=== PATIENT | male | born 1950 | race Hispanic/Latino ===

== ENCOUNTER → 2017-05-09 | Outpatient (CLI) | payer OTHER, MEDICARE ==
[~2017-05-09] MED LIST: CYAN25006 SL; ESOM40CA54 PO; FOLI0.8T2 PO; FOLI1TAB15 PO; FURO-151 PO; FURO40TA5 PO; LACT10SO9 PO; PANT40TA PO; PANT40TA25 PO; RIFA550T PO; SPIR100T3 PO; SPIR50TA3 PO
[2017-05-09 15:45] LABS: ALBUMIN,BODY FLUID < 0.6 g/dL
[2017-05-09 15:51] LABS: SPECIMENTYPE,BODY FLUID THORACENTESIS
[2017-05-09 15:52] LABS: APPEARANCE BODY FLUID TURBID (CLEAR); COLOR,BODY FLUID LT YELLOW (LT YELLOW); TOTAL VOLUME,BODY FLUID 2000 mL
[2017-05-09 15:53] LABS: BODY FLUID RBC 2395 /cu. mm.; BODY FLUID WBC 74 /cu. mm.
[2017-05-09 16:03] LABS: BF LYMPHOCYTE 29 %; BF MESOTHELIAL 39 %
== END | disposition home or self-care (01) ==
LOC: RAH 09:51
PROVIDERS: ATTEND Internal Medicine Gastroenterology
DX: J90 Pleural effusion, not elsewhere classified (principal)
CPT/HCPCS: 32555; 71010; 82042; 84157; 87071; 87205; 88108; 88305; 89051

== ENCOUNTER 2017-05-15 09:46 | Observation (INO) | payer MEDICARE ==
[~2017-05-15] VITALS: Ht 160 cm; Wt 57.2 kg
[~2017-05-15 09:46] MED LIST changes: -CYAN25006 SL; -ESOM40CA54 PO; -FOLI0.8T2 PO; -FOLI1TAB15 PO; -FURO40TA5 PO; -PANT40TA25 PO; -RIFA550T PO; -SPIR100T3 PO; -SPIR50TA3 PO
[2017-05-15 10:07] LABS: BASOPHILS % (AUTO) 0.7 % (0.0-5.0); HEMATOCRIT 23.3 % (42-54); LYMPHOCYTES % (AUTO) 16.8 % (21.0-51.0); MEAN CORPUSCULAR HGB CONC 36.5 g/dL (32.0-36.0); MEAN CORPUSCULAR VOLUME 104.2 fL (79-99); NEUTROPHILS % (AUTO) 71.5 % (40.0-77.0); NUCLEATED RED BLOOD CELLS 0.1 % (0.0-0.19); PLATELET COUNT (AUTO) 63 K/uL (130-400); RED BLOOD CELL COUNT(AUTO) 2.24 MIL/uL (4.50-6.20); RED CELL DISTRIBUTION WIDTH 15.2 % (11.0-15.5); WHITE BLOOD COUNT (AUTO) 4.6 K/uL (4.8-10.8)
[2017-05-15 10:18] LABS: CREATININE 1.1 mg/dL (0.5-1.5); POTASSIUM 4.4 mmol/L (3.5-5.1)
[2017-05-15 10:28] LABS: ALBUMIN 1.8 g/dL (3.5-5.0); BILIRUBIN,DIRECT 3.2 mg/dL (0.0-0.3); BILIRUBIN,TOTAL 6.8 mg/dL (0.2-1.0); TOTAL PROTEIN, SERUM 6.3 g/dL (6.0-8.3)
[2017-05-15] MEDS ORDERED: LACTULOSE 20 GM/30 ML UDCUP ONE (10:43)
[2017-05-15 16:41] VITALS: BP 96/55
[2017-05-15] MEDS ORDERED: POTASSIUM CHLORIDE 10% ELIXIR 20 MEQ/15 ML UDCUP PO PRN (17:15)
[2017-05-15] MEDS ORDERED: POTASSIUM CHLORIDE 20MEQ/100ML 100 ML IV PRN (17:15)
[2017-05-15] MEDS ORDERED: POTASSIUM CHLORIDE 20 MEQ ERTAB PO PRN (17:15)
[2017-05-15] MEDS ORDERED: LACTULOSE 20 GM/30 ML UDCUP PO PRN ×2 (17:15→20:00)
[2017-05-15] MEDS ORDERED: GUAIFENESIN SUGAR-FREE 100 MG/5 ML UDCUP PO PRN (17:15)
[2017-05-15] MEDS ORDERED: CLONIDINE HCL 0.1 MG TABLET PO PRN (17:15)
[2017-05-15] MEDS ORDERED: DiphenhydrAMINE HCL 50 MG/ML VIAL IVP PRN (17:15)
[2017-05-15] MEDS ORDERED: ZOLPIDEM TARTRATE 5 MG TAB PO PRN (17:15)
[2017-05-15] MEDS ORDERED: ONDANSETRON HCL 4 MG/2 ML VIAL IVP PRN (17:15)
[2017-05-15] MEDS ORDERED: MAG HYDROX/AL HYDROX/SIMETH ES 30 ML SUSP UDCUP PO PRN (17:15)
[2017-05-15] MEDS ORDERED: LIDOCAINE HCL-MPF 1% 2ML VIAL IJ PRN (17:15)
[2017-05-15] MEDS ORDERED: GUAIFENESIN-DM 200/20 MG 10 ML PO PRN (17:15)
[2017-05-15] MEDS ORDERED: DIPHENHYDRAMINE HCL 25 MG CAPSULE PO PRN (17:15)
[2017-05-15] MEDS ORDERED: SODIUM CHLORIDE 0.9% 10 ML VIAL IVP SCH (17:15)
[2017-05-15] MEDS ORDERED: NITROGLYCERIN 0.4 MG SL TAB SL PRN (17:15)
[2017-05-15] MEDS ORDERED: ACETAMINOPHEN 325 MG TAB PO PRN ×2 (17:15)
[2017-05-15 19:55] VITALS: BP 116/62
[2017-05-15] MEDS ORDERED: LORAZEPAM 2 MG/ML 1 ML VIAL IVP PRN (20:00)
[2017-05-15 23:00] VITALS: BP 108/62
[2017-05-16 03:00] VITALS: BP 111/64
[2017-05-16 05:10] LABS: HEMATOCRIT 23.3 % (42-54); MEAN CORPUSCULAR HEMOGLOBIN 36.5 pg (27.0-33.0); MEAN CORPUSCULAR VOLUME 104.1 fL (79-99); PLATELET COUNT (AUTO) 62 K/uL (130-400); RED BLOOD CELL COUNT(AUTO) 2.24 MIL/uL (4.50-6.20); RED CELL DISTRIBUTION WIDTH 15.5 % (11.0-15.5); WHITE BLOOD COUNT (AUTO) 5.9 K/uL (4.8-10.8)
[2017-05-16 05:23] LABS: ALBUMIN 1.7 g/dL (3.5-5.0); BILIRUBIN,TOTAL 6.6 mg/dL (0.2-1.0); CREATININE 1.1 mg/dL (0.5-1.5); POTASSIUM 4.2 mmol/L (3.5-5.1); TOTAL PROTEIN, SERUM 5.9 g/dL (6.0-8.3)
[2017-05-16 08:03] VITALS: BP 110/65
[2017-05-16] MEDS ORDERED: LACTULOSE 20 GM/30 ML UDCUP PO SCH (09:00)
[2017-05-16] MEDS ORDERED: LACT10SO9 PO ×2 (11:19)
[2017-05-16] MEDS ORDERED: FURO40TA5 PO ×2 (11:19)
[2017-05-16] MEDS ORDERED: PANT40TA25 PO ×2 (11:19)
[2017-05-16] MEDS ORDERED: SPIR100T3 PO ×2 (11:19)
[2017-05-16 11:31] VITALS: BP 102/58
[2017-08-14] MEDS ORDERED: SPIR50TA3 PO (03:05)
== END 2017-05-16 12:22 | disposition home or self-care (01) ==
LOC: EDH 09:46 → EDHIP 12:00 → INTOOBSV 12:00 → 4CH 16:37
PROVIDERS: ADMIT Family Medicine; ATTEND Family Medicine
DX: K72.90 Hepatic failure, unspecified without coma (principal); K74.60 Unspecified cirrhosis of liver; C22.9 Malignant neoplasm of liver, not specified as primary or secondary; Z85.05 Personal history of malignant neoplasm of liver
CPT/HCPCS: 36415 ×2; 71045; 80048; 80053; 80076; 82140 ×2; 83690; 84484; 85025; 85027; 93005; 99285; G0378 ×24

== ENCOUNTER 2017-05-22 23:31 | Inpatient (IN) | payer MEDICARE ==
[~2017-05-22] VITALS: Ht 165.1 cm; Wt 59.7 kg
[~2017-05-22 23:31] MED LIST changes: +FURO40TA5 PO; +PANT40TA25 PO; +SPIR100T3 PO
[2017-05-23 00:01] LABS: BASOPHILS % (AUTO) 0.6 % (0.0-5.0); EOSINOPHILS % (AUTO) 1.1 % (0.0-8.0); HEMATOCRIT 30.9 % (42-54); LYMPHOCYTES % (AUTO) 15.2 % (21.0-51.0); MEAN CORPUSCULAR HEMOGLOBIN 36.9 pg (27.0-33.0); MEAN CORPUSCULAR HGB CONC 35.6 g/dL (32.0-36.0); MEAN CORPUSCULAR VOLUME 103.6 fL (79-99); MONOCYTES % (AUTO) 10.6 % (3.0-13.0); NEUTROPHILS % (AUTO) 72.5 % (40.0-77.0); PLATELET COUNT (AUTO) 82 K/uL (130-400); RED BLOOD CELL COUNT(AUTO) 2.98 MIL/uL (4.50-6.20); RED CELL DISTRIBUTION WIDTH 16.7 % (11.0-15.5)
[2017-05-23 00:14] LABS: CREATININE 1.5 mg/dL (0.5-1.5); POTASSIUM 4.8 mmol/L (3.5-5.1)
[2017-05-23 00:15] LABS: INR 1.49 (0.85-1.15); PARTIAL THROMBOPLASTIN TIME 33.9 SEC (26.3-35.5); PROTHROMBIN TIME 15.5 SEC (9.6-11.6)
[2017-05-23 00:19] LABS: BILIRUBIN,TOTAL 7.6 mg/dL (0.2-1.0); TOTAL PROTEIN, SERUM 6.6 g/dL (6.0-8.3)
[2017-05-23 00:40] LABS: CREATINE KINASE, TOTAL 30 U/L (21-232)
[2017-05-23] MEDS ORDERED: ONDANSETRON HCL 4 MG/2 ML VIAL ONE (00:47)
[2017-05-23 02:31] LABS: CREATINE KINASE MB < 0.5 ng/mL (0.5-3.6)
[2017-05-23] MEDS ORDERED: LACTULOSE 20 GM/30 ML UDCUP ONE ×2 (03:05→10:19)
[2017-05-23] MEDS ORDERED: PHYTONADIONE 10 MG/1 ML AMP ONE (03:05)
[2017-05-23 06:35] LABS: MEAN CORPUSCULAR HEMOGLOBIN 38.7 pg (27.0-33.0); MEAN CORPUSCULAR HGB CONC 37.2 g/dL (32.0-36.0); MEAN CORPUSCULAR VOLUME 104.3 fL (79-99); PLATELET COUNT (AUTO) 92 K/uL (130-400); RED BLOOD CELL COUNT(AUTO) 1.94 MIL/uL (4.50-6.20); RED CELL DISTRIBUTION WIDTH 16.4 % (11.0-15.5); WHITE BLOOD COUNT (AUTO) 6.9 K/uL (4.8-10.8)
[2017-05-23 06:45] LABS: HEMATOCRIT 20.3 % (42-54)
[2017-05-23 06:49] LABS: CREATININE 1.5 mg/dL (0.5-1.5); POTASSIUM 4.5 mmol/L (3.5-5.1)
[2017-05-23 06:52] LABS: ALBUMIN 1.7 g/dL (3.5-5.0); BILIRUBIN,TOTAL 7.4 mg/dL (0.2-1.0); TOTAL PROTEIN, SERUM 5.8 g/dL (6.0-8.3)
[2017-05-23 07:21] LABS: LYMPHOCYTES % (MANUAL) 9 % (22-44); MAN.DIFF COMMENT-IMPRESSION MANUAL DIFFERENTIAL; MONOCYTES % (MANUAL) 7 % (2-9); SEGMENTED NEUTROPHILS % 84 % (40-70)
[2017-05-23 07:22] LABS: PLATELET MORPHOLOGY COMMENT DECREASED
[2017-05-23] MEDS ORDERED: ALBUMIN (HUMAN) 25% 200 ML IV ONE (16:15)
[2017-05-23 21:11] VITALS: BP 95/46
[2017-05-23] MEDS ORDERED: SODIUM CHLORIDE 0.9% 10 ML VIAL IVP PRN (22:00)
[2017-05-23 23:56] VITALS: BP 93/51
[2017-05-24 03:52] LABS: MEAN CORPUSCULAR HEMOGLOBIN 36.9 pg (27.0-33.0); MEAN CORPUSCULAR HGB CONC 35.5 g/dL (32.0-36.0); NUCLEATED RED BLOOD CELLS 0.2 % (0.0-0.19); PLATELET COUNT (AUTO) 57 K/uL (130-400); RED BLOOD CELL COUNT(AUTO) 1.55 MIL/uL (4.50-6.20); RED CELL DISTRIBUTION WIDTH 15.9 % (11.0-15.5); WHITE BLOOD COUNT (AUTO) 4.2 K/uL (4.8-10.8)
[2017-05-24 03:59] LABS: HEMATOCRIT 16.2 % (42-54)
[2017-05-24 04:00] VITALS: BP 99/50
[2017-05-24 04:39] LABS: ALBUMIN 2.3 g/dL (3.5-5.0); BILIRUBIN,TOTAL 6.1 mg/dL (0.2-1.0); CREATININE 1.4 mg/dL (0.5-1.5); POTASSIUM 4.6 mmol/L (3.5-5.1); TOTAL PROTEIN, SERUM 5.2 g/dL (6.0-8.3)
[2017-05-24] MEDS ORDERED: SODIUM CHLORIDE 0.9% 250 ML IV ONE (04:46)
[2017-05-24] MEDS: LACTULOSE 20 GM/30 ML UDCUP PO SCH ×4 (05:09→17:21)
[2017-05-24 08:32] VITALS: BP 95/50
[2017-05-24] MEDS ORDERED: PANTOPRAZOLE SODIUM 40 MG TABLET.DR PO SCH (09:00)
[2017-05-24 11:37] VITALS: BP 96/51
[2017-05-24 15:48] VITALS: BP 99/59
[2017-08-14] MEDS ORDERED: SPIR50TA3 PO (03:05)
== END 2017-05-24 19:20 | disposition home or self-care (01) | DRG 432 ==
LOC: EDH 23:31 → EDHIP 05-23 02:25 → OBSVTOIN 05-23 02:25 → 3BH 05-23 20:59
PROVIDERS: ADMIT Internal Medicine; ATTEND Internal Medicine
PROC: 0W9G3ZZ Drainage of Peritoneal Cavity, Percutaneous Approach (ICD-10-PCS; principal; 2017-05-23)
PROC: 30233N1 Transfusion of Nonautologous Red Blood Cells into Peripheral Vein, Percutaneous Approach (ICD-10-PCS; 2017-05-24)
DX: K74.60 Unspecified cirrhosis of liver (principal); E43 Unspecified severe protein-calorie malnutrition; D68.9 Coagulation defect, unspecified; K72.90 Hepatic failure, unspecified without coma; D62 Acute posthemorrhagic anemia; K92.2 Gastrointestinal hemorrhage, unspecified; R18.8 Other ascites; E87.1 Hypo-osmolality and hyponatremia
CPT/HCPCS: 36415; 36430; 49083; 80053; 82140; 82550; 82553; 84484; 85025; 85027; 85610; 85730; 86850; 86900; 86901; 86922; 93005; J2405; J3430; J7030; P9016; P9046

== ENCOUNTER 2017-05-27 22:30 | Inpatient (IN) | payer MEDICARE ==
[~2017-05-27] VITALS: Ht 165.1 cm; Wt 62.6 kg
[~2017-05-27 22:30] MED LIST changes: -FURO-151 PO; -PANT40TA PO
[2017-05-28 00:39] LABS: BASOPHILS % (AUTO) 0.5 % (0.0-5.0); EOSINOPHILS % (AUTO) 1.5 % (0.0-8.0); HEMATOCRIT 22.5 % (42-54); LYMPHOCYTES % (AUTO) 12.3 % (21.0-51.0); MEAN CORPUSCULAR HEMOGLOBIN 34.7 pg (27.0-33.0); MEAN CORPUSCULAR HGB CONC 35.5 g/dL (32.0-36.0); MEAN CORPUSCULAR VOLUME 97.8 fL (79-99); MONOCYTES % (AUTO) 9.5 % (3.0-13.0); NEUTROPHILS % (AUTO) 76.2 % (40.0-77.0); NUCLEATED RED BLOOD CELLS 0.1 % (0.0-0.19); PLATELET COUNT (AUTO) 62 K/uL (130-400); RED CELL DISTRIBUTION WIDTH 19.7 % (11.0-15.5); WHITE BLOOD COUNT (AUTO) 5.1 K/uL (4.8-10.8)
[2017-05-28 00:57] LABS: ALANINE AMINOTRANSFERASE 54 U/L (12-78); ALBUMIN 2.1 g/dL (3.5-5.0); ALCOHOL, BLOOD < 3 mg/dL (0-10); ASPARTATE AMINOTRANSFERASE 121 U/L (10-37); BILIRUBIN,TOTAL 6.4 mg/dL (0.2-1.0); CARBON DIOXIDE 23 mmol/L (21-32); CREATININE 1.1 mg/dL (0.5-1.5); GLOMERULAR FILTR. RATE CALC 71 mL/min (>60); GLUCOSE,RANDOM 95 mg/dL (70-105); SODIUM SERUM 118 mmol/L (136-145); TOTAL PROTEIN, SERUM 5.4 g/dL (6.0-8.3); UREA NITROGEN, BLOOD 31 mg/dL (7-18)
[2017-05-28 01:01] LABS: AMMONIA 231 umol/L (11-32); CHLORIDE 89 mmol/L (101-111)
[2017-05-28] MEDS ORDERED: CALCIUM GLUCONATE 1 GM/10 ML VIAL IV ONE (02:15)
[2017-05-28] MEDS ORDERED: SODIUM CHLORIDE 0.9% 1000ML 1,000 ML IV ONE ×2 (02:15→14:14)
[2017-05-28] MEDS ORDERED: SODIUM POLYSTYRENE SULFONATE 15 GM/60 ML ML ONE ×2 (02:31→04:23)
[2017-05-28] MEDS ORDERED: ALBUTEROL SULFATE 0.083% 2.5 MG/3 ML INH IH ONE (02:32)
[2017-05-28 04:19] LABS: APPEARANCE,URINE Clear (CLEAR); BILIRUBIN,URINE Small (NEGATIVE); COLOR,URINE Dark Yellow (YELLOW); GLUCOSE, URINE (UA) Negative (NEGATIVE); KETONES,URINE Negative (NEGATIVE); LEUKOCYTE ESTERASE ,URINE Negative (NEGATIVE); NITRATE,URINE Negative (NEGATIVE); OCCULT BLOOD,URINE Negative (NEGATIVE); PROTEIN,URINE Negative (NEGATIVE)
[2017-05-28 04:28] LABS: AMPHET/METH SCREEN,URINE NEGATIVE (NEGATIVE); BARBITURATE SCREEN, URINE NEGATIVE (NEGATIVE); BENZODIAZEPINES SCREEN,URINE NEGATIVE (NEGATIVE); CANNABINOID SCREEN,URINE NEGATIVE (NEGATIVE); COCAINE SCREEN,URINE NEGATIVE (NEGATIVE); OPIATE SCREEN,URINE NEGATIVE (NEGATIVE); PHENCYCLIDINE SCREEN,URINE NEGATIVE (NEGATIVE)
[2017-05-28 06:50] LABS: CREATININE 1.1 mg/dL (0.5-1.5); POTASSIUM 5.1 mmol/L (3.5-5.1)
[2017-05-28 06:50] LABS: BASOPHILS % (AUTO) 0.6 % (0.0-5.0); EOSINOPHILS % (AUTO) 1.4 % (0.0-8.0); HEMATOCRIT 21.1 % (42-54); LYMPHOCYTES % (AUTO) 16.8 % (21.0-51.0); MEAN CORPUSCULAR HEMOGLOBIN 34.8 pg (27.0-33.0); MEAN CORPUSCULAR HGB CONC 35.5 g/dL (32.0-36.0); MONOCYTES % (AUTO) 10.9 % (3.0-13.0); NEUTROPHILS % (AUTO) 70.3 % (40.0-77.0); NUCLEATED RED BLOOD CELLS 0.1 % (0.0-0.19); PLATELET COUNT (AUTO) 57 K/uL (130-400); RED BLOOD CELL COUNT(AUTO) 2.15 MIL/uL (4.50-6.20); RED CELL DISTRIBUTION WIDTH 20.3 % (11.0-15.5); WHITE BLOOD COUNT (AUTO) 4.3 K/uL (4.8-10.8)
[2017-05-28 06:55] LABS: ALBUMIN 1.8 g/dL (3.5-5.0); BILIRUBIN,TOTAL 5.8 mg/dL (0.2-1.0)
[2017-05-28] MEDS ORDERED: OCTYL 2-CYANOACRYLATE 1 EACH TP ONE (10:29)
[2017-05-28] MEDS ORDERED: LIDOCAINE 2%-EPI 1:200,000 20 ML VIAL IJ ONE (10:32)
[2017-05-28] MEDS: CEFTRIAXONE SODIUM 1 GM IVP SCH (13:30)
[2017-05-28] MEDS ORDERED: CEFTRIAXONE 1GM/D5W 50ML 50 ML IV SCH (13:30)
[2017-05-28] MEDS ORDERED: CEFTRIAXONE SODIUM 1 GM ONE (14:14)
[2017-05-28] MEDS ORDERED: ALBUMIN (HUMAN) 25% 200 ML IV ONE ×2 (15:30→15:48)
[2017-05-28 16:09] LABS: ALBUMIN,BODY FLUID < 0.6 g/dL
[2017-05-28 16:34] LABS: APPEARANCE BODY FLUID CLOUDY (CLEAR); COLOR,BODY FLUID YELLOW (LT YELLOW); SPECIMENTYPE,BODY FLUID ASCITES; TOTAL VOLUME,BODY FLUID 7500 mL
[2017-05-28 16:35] LABS: BODY FLUID WBC 26 /cu. mm.
[2017-05-28 16:36] LABS: BODY FLUID RBC 552 /cu. mm.
[2017-05-28 17:06] LABS: BF LYMPHOCYTE 44 %; BF MESOTHELIAL 1 %; BF MONOCYTE 14 %
[2017-05-28 21:00] VITALS: BP 99/52
[2017-05-28 22:29] VITALS: BP 97/50
[2017-05-28 23:48] VITALS: BP 99/48
[2017-05-29 04:00] VITALS: BP 100/44
[2017-05-29 05:50] LABS: BASOPHILS % (AUTO) 0.9 % (0.0-5.0); EOSINOPHILS % (AUTO) 1.4 % (0.0-8.0); LYMPHOCYTES % (AUTO) 17.6 % (21.0-51.0); MEAN CORPUSCULAR HGB CONC 37.9 g/dL (32.0-36.0); MEAN CORPUSCULAR VOLUME 97.6 fL (79-99); MONOCYTES % (AUTO) 12.9 % (3.0-13.0); NEUTROPHILS % (AUTO) 67.2 % (40.0-77.0); PLATELET COUNT (AUTO) 52 K/uL (130-400); RED BLOOD CELL COUNT(AUTO) 1.83 MIL/uL (4.50-6.20); RED CELL DISTRIBUTION WIDTH 20.8 % (11.0-15.5)
[2017-05-29 05:58] LABS: HEMATOCRIT 17.8 % (42-54)
[2017-05-29 06:21] LABS: ALBUMIN 2.5 g/dL (3.5-5.0); BILIRUBIN,TOTAL 4.7 mg/dL (0.2-1.0); CREATININE 1.2 mg/dL (0.5-1.5); POTASSIUM 4.7 mmol/L (3.5-5.1)
[2017-05-29 08:00] VITALS: BP 98/47
[2017-05-29] MEDS ORDERED: APIXABAN 2.5 MG TABLET PO ONE (09:25)
[2017-05-29] MEDS: LACTULOSE 20 GM/30 ML UDCUP PO SCH ×3 (10:26→20:58)
[2017-05-29] MEDS: PANTOPRAZOLE SODIUM 40 MG TABLET.DR PO SCH (10:26)
[2017-05-29] MEDS ORDERED: SODIUM CHLORIDE 0.9% 250 ML IV ONE (11:19)
[2017-05-29 11:43] VITALS: BP 93/46
[2017-05-29] MEDS: CEFTRIAXONE SODIUM 1 GM IVP SCH (12:45)
[2017-05-29] MEDS: SPIRONOLACTONE 25 MG TAB PO SCH (12:50)
[2017-05-29 16:00] VITALS: BP 103/55
[2017-05-29 20:00] VITALS: BP 111/65
[2017-05-29 23:38] VITALS: BP 101/56
[2017-05-30 03:48] VITALS: BP 108/57
[2017-05-30 04:19] LABS: MEAN CORPUSCULAR HGB CONC 34.9 g/dL (32.0-36.0); MEAN CORPUSCULAR VOLUME 94.6 fL (79-99); NUCLEATED RED BLOOD CELLS 0.1 % (0.0-0.19); PLATELET COUNT (AUTO) 47 K/uL (130-400); RED BLOOD CELL COUNT(AUTO) 2.86 MIL/uL (4.50-6.20); RED CELL DISTRIBUTION WIDTH 18.8 % (11.0-15.5); WHITE BLOOD COUNT (AUTO) 4.2 K/uL (4.8-10.8)
[2017-05-30 04:41] LABS: CREATININE 1.1 mg/dL (0.5-1.5); POTASSIUM 4.9 mmol/L (3.5-5.1)
[2017-05-30 07:00] VITALS: BP 106/58
[2017-05-30] MEDS: PANTOPRAZOLE SODIUM 40 MG TABLET.DR PO SCH (08:49)
[2017-05-30] MEDS: LACTULOSE 20 GM/30 ML UDCUP PO SCH ×2 (08:49→12:47)
[2017-05-30] MEDS: SPIRONOLACTONE 25 MG TAB PO SCH (08:49)
[2017-05-30 11:00] VITALS: BP 102/59
[2017-05-30] MEDS: CEFTRIAXONE SODIUM 1 GM IVP SCH (12:41)
[2017-08-14] MEDS ORDERED: SPIR50TA3 PO (03:05)
== END 2017-05-30 15:30 | disposition home or self-care (01) | DRG 432 ==
LOC: EDH 22:30 → EDHIP 05-28 01:55 → 3DH 05-28 21:09
PROVIDERS: ADMIT Internal Medicine; ATTEND Internal Medicine
PROC: 30233N1 Transfusion of Nonautologous Red Blood Cells into Peripheral Vein, Percutaneous Approach (ICD-10-PCS; principal; 2017-05-28)
PROC: 0W9G3ZZ Drainage of Peritoneal Cavity, Percutaneous Approach (ICD-10-PCS; 2017-05-28)
DX: K70.31 Alcoholic cirrhosis of liver with ascites (principal); E43 Unspecified severe protein-calorie malnutrition; D61.818 Other pancytopenia; D68.9 Coagulation defect, unspecified; D69.6 Thrombocytopenia, unspecified; K72.90 Hepatic failure, unspecified without coma; E87.1 Hypo-osmolality and hyponatremia; D62 Acute posthemorrhagic anemia; K76.6 Portal hypertension; E46 Unspecified protein-calorie malnutrition; E87.5 Hyperkalemia; D64.9 Anemia, unspecified; Z87.891 Personal history of nicotine dependence; Z68.23 Body mass index [BMI] 23.0-23.9, adult
CPT/HCPCS: 36415; 36430; 49083; 80048; 80053; 80305; 81003; 82042; 82105; 82140; 82270; 84132; 84484; 85025; 85027; 86850; 86900; 86901; 86922; 87071; 87205; 87804; 89051; 93005; 94640; 99291; A4218; G0480; J0610; J0696; J3490; J7030; P9016; P9046

== ENCOUNTER 2017-06-07 19:56 | Emergency (ER) | payer MEDICARE ==
[2017-06-08] MEDS ORDERED: RIFA550T PO (14:55)
[2017-08-14] MEDS ORDERED: SPIR50TA3 PO (03:05)
== END 2017-06-07 20:39 | disposition home or self-care (01) ==
LOC: EDH 19:56
DX: C22.8 Malignant neoplasm of liver, primary, unspecified as to type (principal); K73.9 Chronic hepatitis, unspecified; R18.8 Other ascites
CPT/HCPCS: 99281

== ENCOUNTER 2017-06-08 13:01 | Inpatient (IN) | payer MEDICARE ==
[~2017-06-08] VITALS: Ht 165.1 cm; Wt 61.3 kg
[2017-06-08 13:10] VITALS: BP 106/57
[2017-06-08 13:54] LABS: HEMATOCRIT 27.4 % (42-54); MEAN CORPUSCULAR HEMOGLOBIN 35.2 pg (27.0-33.0); MEAN CORPUSCULAR HGB CONC 37.3 g/dL (32.0-36.0); MEAN CORPUSCULAR VOLUME 94.4 fL (79-99); NUCLEATED RED BLOOD CELLS 0.1 % (0.0-0.19); PLATELET COUNT (AUTO) 87 K/uL (130-400); WHITE BLOOD COUNT (AUTO) 6.9 K/uL (4.8-10.8)
[2017-06-08 13:59] LABS: INR 1.39 (0.85-1.15); PARTIAL THROMBOPLASTIN TIME 39.2 SEC (26.3-35.5); PROTHROMBIN TIME 14.5 SEC (9.6-11.6)
[2017-06-08 14:05] LABS: ALBUMIN 2.2 g/dL (3.5-5.0); BILIRUBIN,TOTAL 6.5 mg/dL (0.2-1.0); CREATININE 2.1 mg/dL (0.5-1.5); TOTAL PROTEIN, SERUM 5.9 g/dL (6.0-8.3)
[2017-06-08 14:22] LABS: POTASSIUM 5.8 mmol/L (3.5-5.1)
[2017-06-08] MEDS ORDERED: POTASSIUM CHLORIDE 20MEQ/100ML 100 ML IV PRN (14:30)
[2017-06-08] MEDS ORDERED: NITROGLYCERIN 0.4 MG SL TAB SL PRN (14:30)
[2017-06-08] MEDS ORDERED: DIPHENHYDRAMINE HCL 25 MG CAPSULE PO PRN (14:30)
[2017-06-08] MEDS ORDERED: GUAIFENESIN-DM 200/20 MG 10 ML PO PRN (14:30)
[2017-06-08] MEDS ORDERED: LIDOCAINE HCL-MPF 1% 2ML VIAL IJ PRN (14:30)
[2017-06-08] MEDS ORDERED: POTASSIUM CHLORIDE 20 MEQ ERTAB PO PRN (14:30)
[2017-06-08] MEDS ORDERED: POTASSIUM CHLORIDE 10% ELIXIR 20 MEQ/15 ML UDCUP PO PRN (14:30)
[2017-06-08] MEDS ORDERED: DEXTROSE 50%-WATER 50 ML DISP.SYRIN IV PRN (14:30)
[2017-06-08] MEDS ORDERED: GLUCAGON 1MG KIT 1 MG ML IM PRN (14:30)
[2017-06-08] MEDS ORDERED: ACETAMINOPHEN 325 MG TAB PO PRN (14:30)
[2017-06-08] MEDS ORDERED: ONDANSETRON HCL 4 MG/2 ML VIAL IVP PRN (14:30)
[2017-06-08] MEDS ORDERED: RIFA550T PO (14:55)
[2017-06-08] MEDS ORDERED: ALBUMIN (HUMAN) 25% 100 ML IV PRN (15:15)
[2017-06-08 16:00] VITALS: BP 113/56
[2017-06-08] MEDS: INSULIN R PO SSI SQ SCH ×2 (16:30→20:56)
[2017-06-08 19:26] VITALS: BP 110/56
[2017-06-08] MEDS: LACTULOSE 20 GM/30 ML UDCUP PO SCH (20:55)
[2017-06-08] MEDS: RIFAXIMIN 550 MG TABLET PO SCH (20:55)
[2017-06-08] MEDS: FAMOTIDINE 20MG TAB 20 MG TAB PO SCH (20:55)
[2017-06-09 00:31] VITALS: BP 106/56
[2017-06-09 04:22] VITALS: BP 103/53
[2017-06-09 05:23] LABS: HEMATOCRIT 22.8 % (42-54); MEAN CORPUSCULAR HEMOGLOBIN 33.6 pg (27.0-33.0); MEAN CORPUSCULAR HGB CONC 35.8 g/dL (32.0-36.0); MEAN CORPUSCULAR VOLUME 93.8 fL (79-99); NUCLEATED RED BLOOD CELLS 0.1 % (0.0-0.19); PLATELET COUNT (AUTO) 70 K/uL (130-400); RED BLOOD CELL COUNT(AUTO) 2.43 MIL/uL (4.50-6.20); RED CELL DISTRIBUTION WIDTH 20.8 % (11.0-15.5); WHITE BLOOD COUNT (AUTO) 5.1 K/uL (4.8-10.8)
[2017-06-09 05:38] LABS: ALBUMIN 1.8 g/dL (3.5-5.0); BILIRUBIN,TOTAL 5.9 mg/dL (0.2-1.0); CREATININE 2.1 mg/dL (0.5-1.5); POTASSIUM 5.8 mmol/L (3.5-5.1); TOTAL PROTEIN, SERUM 4.9 g/dL (6.0-8.3)
[2017-06-09] MEDS: INSULIN R PO SSI SQ SCH ×4 (05:55→20:44)
[2017-06-09 08:00] VITALS: BP 94/57
[2017-06-09] MEDS: FAMOTIDINE 20MG TAB 20 MG TAB PO SCH ×2 (08:54→20:44)
[2017-06-09] MEDS: LACTULOSE 20 GM/30 ML UDCUP PO SCH ×2 (08:54→20:44)
[2017-06-09] MEDS: RIFAXIMIN 550 MG TABLET PO SCH ×2 (08:54→20:44)
[2017-06-09 11:42] VITALS: BP 91/51
[2017-06-09 16:13] VITALS: BP 98/53
[2017-06-09 20:00] VITALS: BP 96/52
[2017-06-10] VITALS (13 sets, daily range): BP systolic 87–101; BP diastolic 43–55
[2017-06-10 05:31] LABS: HEMATOCRIT 23.3 % (42-54); MEAN CORPUSCULAR HEMOGLOBIN 34.4 pg (27.0-33.0); MEAN CORPUSCULAR HGB CONC 36.6 g/dL (32.0-36.0); NUCLEATED RED BLOOD CELLS 0.1 % (0.0-0.19); PLATELET COUNT (AUTO) 77 K/uL (130-400); RED BLOOD CELL COUNT(AUTO) 2.48 MIL/uL (4.50-6.20); RED CELL DISTRIBUTION WIDTH 21.1 % (11.0-15.5); WHITE BLOOD COUNT (AUTO) 5.9 K/uL (4.8-10.8)
[2017-06-10 05:40] LABS: CREATININE 2.1 mg/dL (0.5-1.5); POTASSIUM 5.3 mmol/L (3.5-5.1)
[2017-06-10] MEDS: INSULIN R PO SSI SQ SCH ×4 (05:52→20:33)
[2017-06-10 06:10] LABS: BAND NEUTROPHILS % (MANUAL) 3 % (0-2); EOSINOPHILS % (MANUAL) 1 % (1-6); LYMPHOCYTES % (MANUAL) 10 % (22-44); MONOCYTES % (MANUAL) 6 % (2-9); SEGMENTED NEUTROPHILS % 80 % (40-70)
[2017-06-10 06:11] LABS: MAN.DIFF COMMENT-IMPRESSION MANUAL DIFFERENTIAL; PLATELET MORPHOLOGY COMMENT DECREASED
[2017-06-10] MEDS ORDERED: ALBUMIN (HUMAN) 25% 100 ML IV SCH (06:15)
[2017-06-10] MEDS: LACTULOSE 20 GM/30 ML UDCUP PO SCH ×2 (10:29→20:33)
[2017-06-10] MEDS: FAMOTIDINE 20MG TAB 20 MG TAB PO SCH ×2 (10:29→20:33)
[2017-06-10] MEDS: RIFAXIMIN 550 MG TABLET PO SCH ×2 (10:30→20:33)
[2017-06-10 16:43] LABS: APPEARANCE,URINE Clear (CLEAR); BILIRUBIN,URINE Negative (NEGATIVE); COLOR,URINE Dark Yellow (YELLOW); GLUCOSE, URINE (UA) Negative (NEGATIVE); KETONES,URINE Negative (NEGATIVE); LEUKOCYTE ESTERASE ,URINE Negative (NEGATIVE); NITRATE,URINE Negative (NEGATIVE); OCCULT BLOOD,URINE Negative (NEGATIVE); PROTEIN,URINE Negative (NEGATIVE); UROBILINOGEN,URINE 0.2 mg/dL (0.2-1.0)
[2017-06-10 16:45] LABS: SODIUM,URINE RANDOM < 5 mmol/l (40-220)
[2017-06-10] MEDS: THIAMINE HCL 100 MG/ML 2ML VIAL IVP SCH (16:50)
[2017-06-10] MEDS: ALBUMIN (HUMAN) 25% 100 ML IV SCH ×2 (16:50→22:03)
[2017-06-10] MEDS: MIDODRINE HCL 5 MG TABLET PO SCH ×2 (16:50→20:33)
[2017-06-11] VITALS (12 sets, daily range): BP systolic 84–103; BP diastolic 45–59
[2017-06-11] MEDS: ALBUMIN (HUMAN) 25% 100 ML IV SCH ×3 (04:09→21:08)
[2017-06-11 05:15] LABS: MEAN CORPUSCULAR HEMOGLOBIN 33.7 pg (27.0-33.0); MEAN CORPUSCULAR HGB CONC 35.9 g/dL (32.0-36.0); MEAN CORPUSCULAR VOLUME 94.1 fL (79-99); NUCLEATED RED BLOOD CELLS 0.1 % (0.0-0.19); PLATELET COUNT (AUTO) 42 K/uL (130-400); RED BLOOD CELL COUNT(AUTO) 1.75 MIL/uL (4.50-6.20); RED CELL DISTRIBUTION WIDTH 20.9 % (11.0-15.5); WHITE BLOOD COUNT (AUTO) 2.1 K/uL (4.8-10.8)
[2017-06-11 05:49] LABS: HEMATOCRIT 16.4 % (42-54)
[2017-06-11 06:03] LABS: CREATININE 1.9 mg/dL (0.5-1.5); POTASSIUM 4.9 mmol/L (3.5-5.1); THYROID STIMULATING HORMONE 1.36 uIU/mL (0.36-3.74); URIC ACID 6.5 mg/dL (2.6-7.2)
[2017-06-11] MEDS: INSULIN R PO SSI SQ SCH ×4 (06:34→20:35)
[2017-06-11] MEDS: FAMOTIDINE 20MG TAB 20 MG TAB PO SCH ×2 (09:42→20:34)
[2017-06-11] MEDS: FOLIC ACID/VITAMIN B COMP W-C 1 MG CAPSULE PO SCH (09:42)
[2017-06-11] MEDS: RIFAXIMIN 550 MG TABLET PO SCH ×2 (09:44→20:34)
[2017-06-11] MEDS: LACTULOSE 20 GM/30 ML UDCUP PO SCH ×2 (09:44→20:35)
[2017-06-11] MEDS: THIAMINE HCL 100 MG/ML 2ML VIAL IVP SCH (09:44)
[2017-06-11] MEDS: MIDODRINE HCL 5 MG TABLET PO SCH ×3 (09:44→20:34)
[2017-06-12 03:00] VITALS: BP 89/52
[2017-06-12 04:04] LABS: HEMATOCRIT 22.6 % (42-54); MEAN CORPUSCULAR HEMOGLOBIN 32.7 pg (27.0-33.0); MEAN CORPUSCULAR HGB CONC 35.8 g/dL (32.0-36.0); MEAN CORPUSCULAR VOLUME 91.3 fL (79-99); PLATELET COUNT (AUTO) 43 K/uL (130-400); RED BLOOD CELL COUNT(AUTO) 2.48 MIL/uL (4.50-6.20); WHITE BLOOD COUNT (AUTO) 2.9 K/uL (4.8-10.8)
[2017-06-12 04:14] LABS: CREATININE 1.5 mg/dL (0.5-1.5); POTASSIUM 4.8 mmol/L (3.5-5.1)
[2017-06-12] MEDS: ALBUMIN (HUMAN) 25% 100 ML IV SCH ×2 (04:27→13:16)
[2017-06-12] MEDS: INSULIN R PO SSI SQ SCH ×2 (05:52→11:30)
[2017-06-12 06:55] VITALS: BP 96/53
[2017-06-12 08:00] VITALS: BP 109/75
[2017-06-12] MEDS: LACTULOSE 20 GM/30 ML UDCUP PO SCH ×2 (11:15→15:17)
[2017-06-12] MEDS: FAMOTIDINE 20MG TAB 20 MG TAB PO SCH (11:16)
[2017-06-12] MEDS: MIDODRINE HCL 5 MG TABLET PO SCH ×2 (11:16→15:17)
[2017-06-12] MEDS: RIFAXIMIN 550 MG TABLET PO SCH (11:16)
[2017-06-12] MEDS: FOLIC ACID/VITAMIN B COMP W-C 1 MG CAPSULE PO SCH (11:16)
[2017-06-12] MEDS: THIAMINE HCL 100 MG/ML 2ML VIAL IVP SCH (11:21)
[2017-06-12 11:56] VITALS: BP 99/54
[2017-06-12 14:13] LABS: ALBUMIN 3.4 g/dL (3.5-5.0); BILIRUBIN,TOTAL 6.8 mg/dL (0.2-1.0); CREATININE 1.4 mg/dL (0.5-1.5); POTASSIUM 4.7 mmol/L (3.5-5.1); TOTAL PROTEIN, SERUM 5.2 g/dL (6.0-8.3)
[2017-06-12 14:27] LABS: INR 1.78 (0.85-1.15); PARTIAL THROMBOPLASTIN TIME 64.8 SEC (26.3-35.5); PROTHROMBIN TIME 18.5 SEC (9.6-11.6)
[2017-08-14] MEDS ORDERED: SPIR50TA3 PO (03:05)
== END 2017-06-12 16:25 | disposition home or self-care (01) | DRG 432 ==
LOC: EDH 13:01 → 4CH 13:24 → OBSVTOIN 13:24
PROVIDERS: ADMIT Internal Medicine; ATTEND Internal Medicine
PROC: 0W993ZZ Drainage of Right Pleural Cavity, Percutaneous Approach (ICD-10-PCS; 2017-06-10)
PROC: 0W9G3ZZ Drainage of Peritoneal Cavity, Percutaneous Approach (ICD-10-PCS; principal; 2017-06-11)
PROC: 30233N1 Transfusion of Nonautologous Red Blood Cells into Peripheral Vein, Percutaneous Approach (ICD-10-PCS; 2017-06-11)
DX: K74.60 Unspecified cirrhosis of liver (principal); K76.7 Hepatorenal syndrome; N17.9 Acute kidney failure, unspecified; J90 Pleural effusion, not elsewhere classified; E87.0 Hyperosmolality and hypernatremia; D69.6 Thrombocytopenia, unspecified; E87.2 Acidosis; R18.8 Other ascites; E87.5 Hyperkalemia; D64.9 Anemia, unspecified; E88.09 Other disorders of plasma-protein metabolism, not elsewhere classified; K72.90 Hepatic failure, unspecified without coma; F10.10 Alcohol abuse, uncomplicated; N18.9 Chronic kidney disease, unspecified; Z85.05 Personal history of malignant neoplasm of liver
CPT/HCPCS: 32555; 36415; 36430; 49083; 70450; 71045; 76700; 76770; 80048; 80053; 80305; 81001; 81003; 82140; 82533; 82550; 82948; 83605; 83935; 84300; 84443; 84484; 84550; 85007; 85025; 85027; 85610; 85730; 86850; 86900; 86901; 86922; 87040; 87088; 87804; 93005; 99281; 99291; A4218; G0480; J0696; J3411; J7030; P9016; P9046

== ENCOUNTER 2017-06-14 19:36 | Inpatient (IN) | payer MEDICARE ==
[~2017-06-14] VITALS: Ht 165.1 cm; Wt 57.0 kg
[~2017-06-14 19:36] MED LIST changes: +RIFA550T PO; -SPIR100T3 PO
[2017-06-14] MEDS ORDERED: SODIUM CHLORIDE 0.9% 1000ML 1,000 ML IV ONE ×2 (19:47→21:15)
[2017-06-14 20:16] LABS: BASOPHILS % (AUTO) 0.7 % (0.0-5.0); HEMATOCRIT 22.2 % (42-54); LYMPHOCYTES % (AUTO) 17.4 % (21.0-51.0); MEAN CORPUSCULAR HEMOGLOBIN 34.4 pg (27.0-33.0); MEAN CORPUSCULAR HGB CONC 37.1 g/dL (32.0-36.0); MEAN CORPUSCULAR VOLUME 92.8 fL (79-99); NEUTROPHILS % (AUTO) 70.9 % (40.0-77.0); NUCLEATED RED BLOOD CELLS 0.1 % (0.0-0.19); PLATELET COUNT (AUTO) 50 K/uL (130-400); RED BLOOD CELL COUNT(AUTO) 2.39 MIL/uL (4.50-6.20); RED CELL DISTRIBUTION WIDTH 19.6 % (11.0-15.5); WHITE BLOOD COUNT (AUTO) 2.9 K/uL (4.8-10.8)
[2017-06-14 20:28] LABS: CREATININE 1.2 mg/dL (0.5-1.5); POTASSIUM 5.5 mmol/L (3.5-5.1)
[2017-06-14 20:30] LABS: INR 1.62 (0.85-1.15); PARTIAL THROMBOPLASTIN TIME 48.8 SEC (26.3-35.5); PROTHROMBIN TIME 16.9 SEC (9.6-11.6)
[2017-06-14 20:37] LABS: ALBUMIN 3.3 g/dL (3.5-5.0); BILIRUBIN,TOTAL 5.8 mg/dL (0.2-1.0); TOTAL PROTEIN, SERUM 5.5 g/dL (6.0-8.3)
[2017-06-14 21:13] LABS: BAND NEUTROPHILS % (MANUAL) 9 % (0-2); EOSINOPHILS % (MANUAL) 1 % (1-6); LYMPHOCYTES % (MANUAL) 9 % (22-44); MONOCYTES % (MANUAL) 5 % (2-9); REACTIVE LYMPHOCYTES 2 % (0-0); SEGMENTED NEUTROPHILS % 74 % (40-70)
[2017-06-14 21:15] LABS: MAN.DIFF COMMENT-IMPRESSION MANUAL DIFFERENTIAL
[2017-06-14] MEDS ORDERED: LACTULOSE 20 GM/30 ML UDCUP ONE ×2 (21:15→21:26)
[2017-06-14 21:18] LABS: PLATELET MORPHOLOGY COMMENT MARKED DECREASED
[2017-06-14] MEDS: LACTULOSE 20 GM/30 ML UDCUP PO SCH (22:00)
[2017-06-14] MEDS ORDERED: CEFTRIAXONE SODIUM 1 GM IVP SCH (22:00)
[2017-06-15] MEDS: LACTULOSE 20 GM/30 ML UDCUP PO SCH ×2 (05:23→21:41)
[2017-06-15] MEDS: SODIUM CHLORIDE 0.9% 1000ML 1,000 ML IV SCH ×2 (05:23→17:44)
[2017-06-15 05:33] LABS: HEMATOCRIT 22.5 % (42-54); MEAN CORPUSCULAR HEMOGLOBIN 32.9 pg (27.0-33.0); MEAN CORPUSCULAR HGB CONC 35.2 g/dL (32.0-36.0); MEAN CORPUSCULAR VOLUME 93.4 fL (79-99); PLATELET COUNT (AUTO) 49 K/uL (130-400); RED BLOOD CELL COUNT(AUTO) 2.41 MIL/uL (4.50-6.20); WHITE BLOOD COUNT (AUTO) 2.8 K/uL (4.8-10.8)
[2017-06-15 05:37] VITALS: BP 103/56
[2017-06-15 05:48] LABS: POTASSIUM 4.8 mmol/L (3.5-5.1)
[2017-06-15 07:40] VITALS: BP 108/59
[2017-06-15 11:30] VITALS: BP 116/59
[2017-06-15 15:45] VITALS: BP 110/57
[2017-06-15] MEDS ORDERED: ESOM40CA54 PO (16:03)
[2017-06-15 20:05] VITALS: BP 110/60
[2017-06-16] VITALS (7 sets, daily range): BP systolic 95–115; BP diastolic 48–65
[2017-06-16] MEDS: CEFTRIAXONE SODIUM 1 GM IVP SCH (04:41)
[2017-06-16 06:13] LABS: MEAN CORPUSCULAR HEMOGLOBIN 34.7 pg (27.0-33.0); MEAN CORPUSCULAR HGB CONC 36.9 g/dL (32.0-36.0); NUCLEATED RED BLOOD CELLS 0.2 % (0.0-0.19); PLATELET COUNT (AUTO) 42 K/uL (130-400); RED CELL DISTRIBUTION WIDTH 21.2 % (11.0-15.5); WHITE BLOOD COUNT (AUTO) 2.3 K/uL (4.8-10.8)
[2017-06-16 06:15] LABS: HEMATOCRIT 19.8 % (42-54)
[2017-06-16 06:32] LABS: POTASSIUM 4.8 mmol/L (3.5-5.1)
[2017-06-16] MEDS: LACTULOSE 20 GM/30 ML UDCUP PO SCH ×2 (09:26→17:12)
[2017-06-16 10:00] LABS: BILIRUBIN,URINE Small (NEGATIVE); COLOR,URINE Dark Yellow (YELLOW); GLUCOSE, URINE (UA) Negative (NEGATIVE); KETONES,URINE Negative (NEGATIVE); LEUKOCYTE ESTERASE ,URINE Small (NEGATIVE); NITRATE,URINE Negative (NEGATIVE); OCCULT BLOOD,URINE Negative (NEGATIVE); PH,URINE 5.5 (5.0-8.0); PROTEIN,URINE Negative (NEGATIVE)
[2017-06-16 10:07] LABS: AMPHET/METH SCREEN,URINE NEGATIVE (NEGATIVE); BARBITURATE SCREEN, URINE NEGATIVE (NEGATIVE); BENZODIAZEPINES SCREEN,URINE NEGATIVE (NEGATIVE); CANNABINOID SCREEN,URINE NEGATIVE (NEGATIVE); COCAINE SCREEN,URINE NEGATIVE (NEGATIVE); OPIATE SCREEN,URINE NEGATIVE (NEGATIVE); PHENCYCLIDINE SCREEN,URINE NEGATIVE (NEGATIVE)
[2017-06-16 10:14] LABS: APPEARANCE,URINE SLIGHTLY CLOUDY (CLEAR)
[2017-06-16 10:28] LABS: BACTERIA,URINE Rare /HPF (None Seen); RBC,URINE 0-1 /HPF (0-1); SQUAMOUS EPITHELIAL CELL,UR Rare /LPF (0-2)
[2017-06-16] MEDS: SODIUM CHLORIDE 0.9% 1000ML 1,000 ML IV SCH (17:12)
[2017-06-17] MEDS: LACTULOSE 20 GM/30 ML UDCUP PO SCH ×2 (01:34→08:29)
[2017-06-17 04:00] VITALS: BP 114/80
[2017-06-17] MEDS: CEFTRIAXONE SODIUM 1 GM IVP SCH (04:48)
[2017-06-17 05:19] LABS: MEAN CORPUSCULAR HEMOGLOBIN 32.8 pg (27.0-33.0); MEAN CORPUSCULAR VOLUME 93.7 fL (79-99); PLATELET COUNT (AUTO) 47 K/uL (130-400); RED BLOOD CELL COUNT(AUTO) 2.24 MIL/uL (4.50-6.20); RED CELL DISTRIBUTION WIDTH 21.4 % (11.0-15.5); WHITE BLOOD COUNT (AUTO) 2.9 K/uL (4.8-10.8)
[2017-06-17 05:41] LABS: POTASSIUM 4.7 mmol/L (3.5-5.1)
[2017-06-17 06:13] LABS: EOSINOPHILS % (MANUAL) 1 % (1-6); LYMPHOCYTES % (MANUAL) 13 % (22-44); MAN.DIFF COMMENT-IMPRESSION MANUAL DIFFERENTIAL; MONOCYTES % (MANUAL) 8 % (2-9); SEGMENTED NEUTROPHILS % 78 % (40-70)
[2017-06-17 06:15] LABS: PLATELET MORPHOLOGY COMMENT MARKED INCREASED
[2017-08-14] MEDS ORDERED: SPIR50TA3 PO (03:05)
== END 2017-06-17 08:45 | disposition home or self-care (01) | DRG 441 ==
LOC: EDH 19:36 → EDHIP 21:19 → OBSVTOIN 21:19 → 3BH 06-15 03:33
PROVIDERS: ADMIT Internal Medicine; ATTEND Internal Medicine
DX: K72.90 Hepatic failure, unspecified without coma (principal); R57.1 Hypovolemic shock; E87.1 Hypo-osmolality and hyponatremia; D61.818 Other pancytopenia; K74.60 Unspecified cirrhosis of liver; Z85.05 Personal history of malignant neoplasm of liver
CPT/HCPCS: 36415; 70450; 71045; 80048; 80053; 80305; 81001; 82140; 82550; 83605; 84484; 85007; 85025; 85027; 85610; 85730; 86850; 86900; 86901; 86922; 87040; 87088; 87804; 93005; 99291; A4218; G0480; J0696; J7030

== ENCOUNTER → 2017-07-08 | Outpatient (CLI) | payer MEDICARE ==
[~2017-07-08] MED LIST changes: +ALBUMIN (HUMAN) 25% 200 ML IV SCH; +CYAN25006 SL; +ESOM40CA54 PO; +FOLI0.8T2 PO; +FOLI1TAB15 PO; +SPIR50TA3 PO
[2017-07-08 10:53] LABS: INR 1.41 (0.85-1.15); PARTIAL THROMBOPLASTIN TIME 41.8 SEC (26.3-35.5); PROTHROMBIN TIME 14.7 SEC (9.6-11.6)
== END | disposition home or self-care (01) ==
LOC: RAH 09:47
PROVIDERS: ATTEND Internal Medicine
DX: K70.31 Alcoholic cirrhosis of liver with ascites (principal)
CPT/HCPCS: 36415; 49083; 85610; 85730; P9046

== ENCOUNTER 2017-07-26 12:03 | Inpatient (IN) | payer MEDICARE ==
[~2017-07-26] VITALS: Ht 5 cm; Wt 63.1 kg
[~2017-07-26 12:03] MED LIST changes: -ALBUMIN (HUMAN) 25% 200 ML IV SCH; -CYAN25006 SL; -FOLI0.8T2 PO; -FOLI1TAB15 PO; -SPIR50TA3 PO
[2017-07-26 12:43] LABS: BASOPHILS % (AUTO) 0.4 % (0.0-5.0); EOSINOPHILS % (AUTO) 3.2 % (0.0-8.0); LYMPHOCYTES % (AUTO) 13.1 % (21.0-51.0); MEAN CORPUSCULAR HEMOGLOBIN 35.9 pg (27.0-33.0); MEAN CORPUSCULAR HGB CONC 36.8 g/dL (32.0-36.0); MEAN CORPUSCULAR VOLUME 97.3 fL (79-99); MONOCYTES % (AUTO) 11.5 % (3.0-13.0); NEUTROPHILS % (AUTO) 71.8 % (40.0-77.0); PLATELET COUNT (AUTO) 100 K/uL (130-400); RED CELL DISTRIBUTION WIDTH 18.6 % (11.0-15.5); WHITE BLOOD COUNT (AUTO) 7.3 K/uL (4.8-10.8)
[2017-07-26 12:59] LABS: CREATININE 2.4 mg/dL (0.5-1.5); POTASSIUM 5.3 mmol/L (3.5-5.1)
[2017-07-26 13:01] LABS: BILIRUBIN,DIRECT 1.9 mg/dL (0.0-0.3); BILIRUBIN,TOTAL 3.3 mg/dL (0.2-1.0); TOTAL PROTEIN, SERUM 5.6 g/dL (6.0-8.3)
[2017-07-26 13:33] LABS: HEMATOCRIT 19.4 % (42-54)
[2017-07-26] MEDS ORDERED: SODIUM CHLORIDE 0.9% 1000ML 1,000 ML IV ONE (19:45)
[2017-07-27] VITALS: BP 103/57
[2017-07-27] MEDS: SODIUM CHLORIDE 0.9% 1000ML 1,000 ML IV SCH ×2 (00:12→13:05)
[2017-07-27 04:00] VITALS: BP 101/55
[2017-07-27] MEDS ORDERED: NON-FORMULARY MEDICATION 1 EACH (Esomeprazole Magnesium 40 MG) PO SCH (06:30)
[2017-07-27 07:55] LABS: MEAN CORPUSCULAR HEMOGLOBIN 33.2 pg (27.0-33.0); MEAN CORPUSCULAR HGB CONC 35.2 g/dL (32.0-36.0); MEAN CORPUSCULAR VOLUME 94.2 fL (79-99); NUCLEATED RED BLOOD CELLS 0.1 % (0.0-0.19); PLATELET COUNT (AUTO) 84 K/uL (130-400); RED BLOOD CELL COUNT(AUTO) 2.76 MIL/uL (4.50-6.20); RED CELL DISTRIBUTION WIDTH 18.5 % (11.0-15.5); WHITE BLOOD COUNT (AUTO) 5.8 K/uL (4.8-10.8)
[2017-07-27 08:07] VITALS: BP 106/59
[2017-07-27 08:12] LABS: CREATININE 1.8 mg/dL (0.5-1.5)
[2017-07-27] MEDS: RIFAXIMIN 550 MG TABLET PO SCH ×2 (08:47→21:45)
[2017-07-27] MEDS: LACTULOSE 20 GM/30 ML UDCUP PO SCH ×2 (08:47→21:45)
[2017-07-27] MEDS: FUROSEMIDE 40 MG TABLET PO SCH ×3 (08:47→18:22)
[2017-07-27] MEDS: PANTOPRAZOLE SODIUM 40 MG TABLET.DR PO SCH (08:47)
[2017-07-27 12:00] VITALS: BP 91/55
[2017-07-27 12:04] LABS: INR 1.42 (0.85-1.15); PARTIAL THROMBOPLASTIN TIME 42.2 SEC (26.3-35.5); PROTHROMBIN TIME 14.8 SEC (9.6-11.6)
[2017-07-27 16:00] VITALS: BP 110/55
[2017-07-27] MEDS: SODIUM POLYSTYRENE SULFONATE 15 GM/60 ML ML PO SCH (18:22)
[2017-07-27 20:00] VITALS: BP 98/50
[2017-07-27 21:58] LABS: APPEARANCE,URINE Clear (CLEAR); BILIRUBIN,URINE Negative (NEGATIVE); COLOR,URINE Yellow (YELLOW); GLUCOSE, URINE (UA) Negative (NEGATIVE); KETONES,URINE Negative (NEGATIVE); LEUKOCYTE ESTERASE ,URINE Negative (NEGATIVE); NITRATE,URINE Negative (NEGATIVE); OCCULT BLOOD,URINE Negative (NEGATIVE); PH,URINE 5.5 (5.0-8.0); PROTEIN,URINE Negative (NEGATIVE); UROBILINOGEN,URINE 0.2 mg/dL (0.2-1.0)
[2017-07-28] VITALS: BP 88/52
[2017-07-28] MEDS: SODIUM CHLORIDE 0.9% 1000ML 1,000 ML IV SCH ×2 (02:34→15:45)
[2017-07-28 03:57] VITALS: BP 107/50
[2017-07-28 06:17] LABS: HEMATOCRIT 23.3 % (42-54); MEAN CORPUSCULAR HGB CONC 37.2 g/dL (32.0-36.0); MEAN CORPUSCULAR VOLUME 94.3 fL (79-99); NUCLEATED RED BLOOD CELLS 0.1 % (0.0-0.19); PLATELET COUNT (AUTO) 77 K/uL (130-400); RED BLOOD CELL COUNT(AUTO) 2.47 MIL/uL (4.50-6.20); RED CELL DISTRIBUTION WIDTH 18.9 % (11.0-15.5); WHITE BLOOD COUNT (AUTO) 5.7 K/uL (4.8-10.8)
[2017-07-28 06:34] LABS: ALBUMIN 1.9 g/dL (3.5-5.0); BILIRUBIN,TOTAL 5.5 mg/dL (0.2-1.0); CREATININE 1.9 mg/dL (0.5-1.5); POTASSIUM 4.9 mmol/L (3.5-5.1); TOTAL PROTEIN, SERUM 5.1 g/dL (6.0-8.3)
[2017-07-28 07:15] VITALS: BP 98/51
[2017-07-28] MEDS: FUROSEMIDE 40 MG TABLET PO SCH ×2 (07:31→19:16)
[2017-07-28] MEDS: PANTOPRAZOLE SODIUM 40 MG TABLET.DR PO SCH (07:31)
[2017-07-28] MEDS: LACTULOSE 20 GM/30 ML UDCUP PO SCH ×2 (07:31→20:31)
[2017-07-28] MEDS: RIFAXIMIN 550 MG TABLET PO SCH ×2 (07:38→20:31)
[2017-07-28 11:22] VITALS: BP 92/52
[2017-07-28 15:35] VITALS: BP 105/56
[2017-07-28] MEDS: SODIUM POLYSTYRENE SULFONATE 15 GM/60 ML ML PO SCH (18:15)
[2017-07-28 20:00] VITALS: BP 98/56
[2017-07-29] VITALS (11 sets, daily range): BP systolic 93–151; BP diastolic 51–88
[2017-07-29] MEDS: SODIUM CHLORIDE 0.9% 1000ML 1,000 ML IV SCH (04:37)
[2017-07-29 06:31] LABS: HEMATOCRIT 23.7 % (42-54); MEAN CORPUSCULAR HEMOGLOBIN 33.2 pg (27.0-33.0); MEAN CORPUSCULAR HGB CONC 34.8 g/dL (32.0-36.0); MEAN CORPUSCULAR VOLUME 95.5 fL (79-99); PLATELET COUNT (AUTO) 76 K/uL (130-400); RED BLOOD CELL COUNT(AUTO) 2.49 MIL/uL (4.50-6.20); RED CELL DISTRIBUTION WIDTH 18.9 % (11.0-15.5); WHITE BLOOD COUNT (AUTO) 6.5 K/uL (4.8-10.8)
[2017-07-29 06:40] LABS: CREATININE 1.7 mg/dL (0.5-1.5); POTASSIUM 3.9 mmol/L (3.5-5.1)
[2017-07-29] MEDS ORDERED: ALBUMIN (HUMAN) 25% 100 ML IV SCH (07:00)
[2017-07-29] MEDS: FUROSEMIDE 40 MG TABLET PO SCH (09:53)
[2017-07-29] MEDS: LACTULOSE 20 GM/30 ML UDCUP PO SCH (09:53)
[2017-07-29] MEDS: PANTOPRAZOLE SODIUM 40 MG TABLET.DR PO SCH (09:53)
[2017-07-29] MEDS: RIFAXIMIN 550 MG TABLET PO SCH (09:53)
[2017-08-14] MEDS ORDERED: SPIR50TA3 PO (03:05)
== END 2017-07-29 17:45 | disposition home or self-care (01) | DRG 432 ==
LOC: EDH 12:03 → EDHIP 13:55 → 3CH 21:25
PROVIDERS: ADMIT Internal Medicine; ATTEND Internal Medicine
PROC: 0W9G3ZZ Drainage of Peritoneal Cavity, Percutaneous Approach (ICD-10-PCS; principal; 2017-07-29)
PROC: 30233N1 Transfusion of Nonautologous Red Blood Cells into Peripheral Vein, Percutaneous Approach (ICD-10-PCS; 2017-07-29)
DX: K74.60 Unspecified cirrhosis of liver (principal); N17.0 Acute kidney failure with tubular necrosis; E43 Unspecified severe protein-calorie malnutrition; C22.0 Liver cell carcinoma; J90 Pleural effusion, not elsewhere classified; S37.009A Unspecified injury of unspecified kidney, initial encounter; Z94.4 Liver transplant status; N18.4 Chronic kidney disease, stage 4 (severe); E87.1 Hypo-osmolality and hyponatremia; D64.9 Anemia, unspecified; E87.5 Hyperkalemia; Z85.05 Personal history of malignant neoplasm of liver
CPT/HCPCS: 36415; 36430; 49083; 71045; 80048; 80053; 80076; 81003; 82140; 84132; 85025; 85027; 85610; 85730; 86850; 86900; 86901; 86922; J7030; P9016; P9046

== ENCOUNTER 2017-08-13 20:26 | Inpatient (IN) | payer MEDICARE ==
[~2017-08-13] VITALS: Ht 165.1 cm; Wt 62.6 kg
[2017-08-13 20:46] LABS: BASOPHILS % (AUTO) 0.1 % (0.0-5.0); EOSINOPHILS % (AUTO) 1.5 % (0.0-8.0); HEMATOCRIT 22.1 % (42-54); LYMPHOCYTES % (AUTO) 6.5 % (21.0-51.0); MEAN CORPUSCULAR HGB CONC 36.1 g/dL (32.0-36.0); MEAN CORPUSCULAR VOLUME 96.8 fL (79-99); MONOCYTES % (AUTO) 12.7 % (3.0-13.0); NEUTROPHILS % (AUTO) 79.2 % (40.0-77.0); PLATELET COUNT (AUTO) 125 K/uL (130-400); RED BLOOD CELL COUNT(AUTO) 2.28 MIL/uL (4.50-6.20); RED CELL DISTRIBUTION WIDTH 19.7 % (11.0-15.5); WHITE BLOOD COUNT (AUTO) 11.6 K/uL (4.8-10.8)
[2017-08-13 20:55] LABS: CREATININE 3.8 mg/dL (0.5-1.5); POTASSIUM 5.7 mmol/L (3.5-5.1)
[2017-08-13 21:09] LABS: CREATINE KINASE MB 0.8 ng/mL (0.5-3.6); TOTAL PROTEIN, SERUM 5.8 g/dL (6.0-8.3)
[2017-08-13 21:24] LABS: INR 1.33 (0.85-1.15); PROTHROMBIN TIME 13.6 SEC (9.6-11.6)
[2017-08-13 21:25] LABS: PARTIAL THROMBOPLASTIN TIME 37.5 SEC (26.3-35.5)
[2017-08-13] MEDS ORDERED: SODIUM POLYSTYRENE SULFONATE 15 GM/60 ML ML ONE (22:02)
[2017-08-13] MEDS ORDERED: DEXTROSE 50%-WATER 50 ML DISP.SYRIN IV ONE (22:03)
[2017-08-13] MEDS ORDERED: SODIUM CHLORIDE 0.9% 500ML 500 ML IV ONE (22:03)
[2017-08-13] MEDS ORDERED: INSULIN HUMULIN R 100 UNIT/ML 3ML ONE (22:04)
[2017-08-13] MEDS ORDERED: FUROSEMIDE 10 MG/ML 4ML VIAL ONE (22:12)
[2017-08-13 23:20] VITALS: BP 119/69
[2017-08-13] MEDS ORDERED: 1/2 NORMAL SALINE 1,000 ML IV SCH (23:45)
[2017-08-14] MEDS ORDERED: 1/2 NORMAL SALINE 1,000 ML IV ONE
[2017-08-14] MEDS ORDERED: CEFTRIAXONE SODIUM 1 GM IV SCH
[2017-08-14] MEDS: CEFTRIAXONE SODIUM 1 GM IVP SCH (00:02)
[2017-08-14] MEDS: IPRATROPIUM/ALBUTEROL SULFATE 3 ML SOLUTION IH SCH ×4 (00:15→19:13)
[2017-08-14] MEDS ORDERED: SPIR50TA5 PO (03:05)
[2017-08-14] MEDS ORDERED: FOLI1TAB15 PO (03:05)
[2017-08-14] MEDS ORDERED: FOLI0.8T2 PO (03:05)
[2017-08-14] MEDS ORDERED: CYAN25006 SL (03:05)
[2017-08-14 03:22] VITALS: BP 107/61
[2017-08-14] MEDS ORDERED: SODIUM CHLORIDE 0.9% 500ML 500 ML IV ONE (06:29)
[2017-08-14] MEDS ORDERED: SODIUM CHLORIDE 0.9% 500ML 500 ML IV SCH (06:45)
[2017-08-14 07:01] LABS: MEAN CORPUSCULAR HEMOGLOBIN 33.9 pg (27.0-33.0); MEAN CORPUSCULAR VOLUME 96.9 fL (79-99); PLATELET COUNT (AUTO) 95 K/uL (130-400); RED BLOOD CELL COUNT(AUTO) 2.06 MIL/uL (4.50-6.20); RED CELL DISTRIBUTION WIDTH 19.9 % (11.0-15.5); WHITE BLOOD COUNT (AUTO) 8.6 K/uL (4.8-10.8)
[2017-08-14 07:04] LABS: HEMATOCRIT 19.9 % (42-54)
[2017-08-14 07:10] VITALS: BP 102/47
[2017-08-14 07:30] LABS: CREATININE 3.6 mg/dL (0.5-1.5); POTASSIUM 4.8 mmol/L (3.5-5.1)
[2017-08-14 07:54] LABS: INR 1.46 (0.85-1.15); PARTIAL THROMBOPLASTIN TIME 42.5 SEC (26.3-35.5); PROTHROMBIN TIME 14.8 SEC (9.6-11.6)
[2017-08-14] MEDS ORDERED: FUROSEMIDE 10 MG/ML 4ML VIAL IVP SCH (09:00)
[2017-08-14] MEDS: FUROSEMIDE 10 MG/ML 4ML VIAL IVP SCH ×2 (09:52→18:23)
[2017-08-14 11:15] VITALS: BP 96/54
[2017-08-14] MEDS ORDERED: LIDOCAINE HCL 1% 20 ML VIAL ONE (14:07)
[2017-08-14 15:12] VITALS: BP 100/54
[2017-08-14 20:00] VITALS: BP 101/36
[2017-08-14 23:54] VITALS: BP 99/54
[2017-08-15] MEDS: IPRATROPIUM/ALBUTEROL SULFATE 3 ML SOLUTION IH SCH ×3 (00:21→13:17)
[2017-08-15] MEDS: CEFTRIAXONE SODIUM 1 GM IVP SCH (02:11)
[2017-08-15 04:00] VITALS: BP 90/51
[2017-08-15 04:46] LABS: MEAN CORPUSCULAR HGB CONC 36.9 g/dL (32.0-36.0); MEAN CORPUSCULAR VOLUME 97.5 fL (79-99); PLATELET COUNT (AUTO) 92 K/uL (130-400); RED BLOOD CELL COUNT(AUTO) 1.91 MIL/uL (4.50-6.20); RED CELL DISTRIBUTION WIDTH 19.6 % (11.0-15.5); WHITE BLOOD COUNT (AUTO) 6.3 K/uL (4.8-10.8)
[2017-08-15] MEDS ORDERED: SODIUM CHLORIDE 0.9% 1000ML 1,000 ML IV ONE (04:46)
[2017-08-15 04:49] LABS: HEMATOCRIT 18.7 % (42-54)
[2017-08-15 05:03] LABS: CREATININE 3.8 mg/dL (0.5-1.5); POTASSIUM 4.7 mmol/L (3.5-5.1)
[2017-08-15] MEDS: FUROSEMIDE 10 MG/ML 4ML VIAL IVP SCH (06:31)
[2017-08-15 08:24] VITALS: BP 121/49
[2017-08-15] MEDS ORDERED: SODIUM CHLORIDE 0.9% 500ML 500 ML IV ONE (11:15)
[2017-08-15 11:56] VITALS: BP 110/47
[2017-08-15] MEDS ORDERED: HYDROMORPHONE 1 MG/1 ML AMP IVP PRN (13:00)
[2017-08-15] MEDS ORDERED: LORAZEPAM 2 MG/ML 1 ML VIAL IVP SCH (13:00)
[2017-08-15 15:40] VITALS: BP 98/55
== END 2017-08-15 17:05 | disposition short-term general hospital (02) | DRG 432 ==
LOC: EDH 20:26 → EDHIP 21:59 → 3CH 22:42
PROVIDERS: ADMIT Internal Medicine; ATTEND Internal Medicine
PROC: 0W993ZZ Drainage of Right Pleural Cavity, Percutaneous Approach (ICD-10-PCS; principal; 2017-08-14)
PROC: 30233N1 Transfusion of Nonautologous Red Blood Cells into Peripheral Vein, Percutaneous Approach (ICD-10-PCS; 2017-08-15)
DX: K70.31 Alcoholic cirrhosis of liver with ascites (principal); J96.90 Respiratory failure, unspecified, unspecified whether with hypoxia or hypercapnia; C22.0 Liver cell carcinoma; R64 Cachexia; K72.90 Hepatic failure, unspecified without coma; J91.0 Malignant pleural effusion; D68.9 Coagulation defect, unspecified; K76.6 Portal hypertension; E87.1 Hypo-osmolality and hyponatremia; E87.5 Hyperkalemia; D64.9 Anemia, unspecified; F10.10 Alcohol abuse, uncomplicated; Z51.5 Encounter for palliative care; Z66 Do not resuscitate; Z85.05 Personal history of malignant neoplasm of liver
CPT/HCPCS: 32555; 36415; 36430; 71045; 71250; 80048; 80053; 82140; 82550; 82553; 83605; 83874; 84484; 85025; 85027; 85610; 85730; 86850; 86900; 86901; 86922; 87040; 93005; 94640; 94664; 99291; A4218; J0696; J1815; J1940; J7030; J7040; J7070; P9016